=== PATIENT | male | born 1950 | race Caucasian/White ===

== ENCOUNTER → 2016-10-06 | Outpatient (CLI) | payer OTHER ==
[~2016-10-06] MED LIST: GADOBUTROL 10 ML VIAL IVP ONE
--- NOTE | 2016-10-06 09:45 | MR ---
MRI of the Brain (Without and With Contrast) October 06, 2016 Indication: Follow up left cerebellopontine angle mass. Technique: T1-weighted images were acquired axially and sagittally from the foramen magnum to the ve rtex. Axial fast inversion recovery, fast T2-weighted, susceptibility, and diffusion-weighted axial images were obtained without contrast. Postcontrast axial and coronal images with the uneventful intr avenous administration of 8 mL Gadavist contrast. Comparison: Brain MRI, January 11, 2016 and April 19, 2016. Findings: The dural based left cerebellopontine angle mass, measuring 2.3 x 1.5 cm in the axial plane x 2.3 cm craniocaudal, is unchanged in size since January and April 2016. Lesion has minimal decreased central enhancement since January and April 2016. Decreased central signal on the susceptibility weighte d and T1-weighted imaging is unchanged suggesting a component of internal calcification. Mild mass effect upon the left cerebellar peduncle is unchanged. No acute intracranial hemorrhage, ischemia, or shift. The ventricular system is normal caliber and mi dline. White matter has normal signal. The small susceptibility artifact in the high right parietal s ubcortical white matter is unchanged on the T2 and susceptibility weighted sequences. The cervicooccipital junction is normal. The pituitary gland is normal size. The carotid and basivert ebral arteries have normal black flow void on T2-weighted imaging. Circumferential mucosal thickening in the maxillary sinuses is new. Impression: 1. 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 Minimal mass effect upon the left cerebellar peduncle is unchanged. 2. No acute intracranial hemorrhage, subdural hematoma, or new mass effect has developed. 3. Punctate calcification, hemosiderin versus cavernous hemangioma, in high right parietal lobe is un changed.
== END ==
LOC: FIMAGING 08:10
PROVIDERS: ATTEND Neurological Surgery
DX: D33.9 Benign neoplasm of central nervous system, unspecified (principal)
CPT/HCPCS: A9585

== ENCOUNTER → 2017-05-30 | Outpatient (CLI) | payer OTHER | LOC: BMCIMAGING 12:12 | PROVIDERS: ATTEND Emergency Medicine | DX: S82.425A Nondisplaced transverse fracture of shaft of left fibula, initial encounter for closed fracture (principal) ==

== ENCOUNTER → 2018-12-30 | Outpatient (CLI) | payer OTHER | LOC: FIMAGING 16:34 | PROVIDERS: ATTEND Physician Assistant | DX: M79.604 Pain in right leg (principal); S86.811D Strain of other muscle(s) and tendon(s) at lower leg level, right leg, subsequent encounter ==